=== PATIENT | female | born 1970 | race Caucasian/White ===

== ENCOUNTER → 2019-12-07 14:25 | Outpatient (CLI) | payer OTHER, SELFPAY ==
--- NOTE | ~2019-12-07 | MM_ITS ---
EXAMINATION: MM diag rui implant BI w kaylie HISTORY: Bilateral breast lumps and pain TECHNIQUE: ML, MLO and cc 3-D tomosynthesis images of both breasts were performed and synthetic 2-D i mages were generated. CAD analysis was submitted and interpreted. High resolution complete bilateral breast ultrasound was performed. COMPARISON: 05/11/2019 bilateral implant diagnostic digital mammogram and Limited bilateral breast ultr asound examination 03/29/2018 bilateral Limited breast ultrasound 02/03/2018 bilateral implant digital screening mammogram BREAST PARENCHYMAL COMPOSITION: The breasts are extremely dense, which lowers the sensitivity of mamm ography. FINDINGS: MAMMOGRAPHIC FINDINGS: A partially circumscribed 6 mm mass is suggested posteriorly in the upper medial left breast (MLO Pa osynthesis image 28/53). Additional breast masses cannot be excluded due to the dense stroma. Bilateral complete breast ultras ound examination was therefore performed. ULTRASOUND: Right breast: 9:00 subareolar area: 8 x 3 x 7 mm simple cyst 9:00 5 cm from nipple at area of a palpable abnormality: Parallel circumscribed mixed cystic and betsy d 3 x 1.6 x 1.3 cm lesion adjacent to the implant, without posterior shadowing or internal vascularit y, having benign sonographic appearance Left breast: 2:00 subareolar area and area of palpable findin x 4.6 x 4.8 mm cyst with through transmission an d posterior enhancement; this corresponds to the mammographic 6 mm mass (MLO Tomosynthesis image 28/5 3). IMPRESSION: 1. Benign findings; no mammographic evidence of malignancy 2. Routine mammographic screening is recommended. BI-RADS Category 2: Benign finding(s). Radiology Reviewed, dictated and finalized at location A. ULATION CHEMIST
--- NOTE | ~2019-12-07 | US_ITS ---
US breast BI complete DATE: 12/07/2019 16:28 INDICATION: Bilateral lumpy breast texture TECHNIQUE: High-resolution ultrasound and color flow imaging of both complete breasts FINDINGS: Please refer to combined bilateral diagnostic mammogram and bilateral complete breast ultra sound report IMPRESSION: BI-RADS Category 2: Benign Recommendation: Routine mammographic screening Reviewed, dictated and finalized at Location A. Reviewed, dictated and finalized at location B. OLOGIST
== END ==
PROVIDERS: PCP Family Medicine; Visit Provider Obstetrics & Gynecology
DX: N64.4 Mastodynia (principal); N63.10 Unspecified lump in the right breast, unspecified quadrant; N63.20 Unspecified lump in the left breast, unspecified quadrant
CPT/HCPCS: 76641; 77062; 77066; G0279

== ENCOUNTER → 2021-02-11 16:45 | Outpatient (CLI) | payer OTHER, SELFPAY ==
--- NOTE | ~2021-02-11 | MM_ITS ---
EXAMINATION: MM scrn rui implant BI w kaylie HISTORY: Screening mammogram TECHNIQUE: Craniocaudal and mediolateral oblique 3-D tomosynthesis images with implant displacement a nd synthetic 2-D images were generated. Craniocaudal and mediolateral oblique views of the breasts wi thout implant displacement were obtained using full field digital mammography. CAD analysis was submi tted and interpreted. COMPARISON: 12/07/2019 bilateral diagnostic implant mammogram and bilateral complete breast ultrasound 05/11/2019 bilateral diagnostic implant digital mammogram examination and bilateral Limited breast ultr asound 03/29/2018 bilateral Limited breast ultrasound 02/03/2018, 09/07/2016 bilateral implant digital screening mammogram examinations BREAST PARENCHYMAL COMPOSITION: The breasts are heterogeneously dense, which may obscure small masses . FINDINGS: Status post bilateral augmentation mammoplasty There is no evidence of suspicious mass, rahel cification, or architectural distortion to suggest malignancy in either breast. There has been no vania picious interval change. IMPRESSION: 1. No mammographic evidence of malignancy. 2. Recommend routine screening mammography in one year. BI-RADS Category 1: Negative Reviewed, dictated and finalized at location A.
== END ==
PROVIDERS: Visit Provider Physician Assistant
DX: Z12.31 Encounter for screening mammogram for malignant neoplasm of breast (principal)
CPT/HCPCS: 77063; 77067

== ENCOUNTER → 2022-02-26 13:41 | Outpatient (CLI) | payer OTHER, SELFPAY ==
--- NOTE | ~2022-02-26 | MM_ITS ---
EXAMINATION: MM scrn rui implant BI w kaylie HISTORY: Screening mammogram TECHNIQUE: Craniocaudal and mediolateral oblique 3-D tomosynthesis images with implant displacement a nd synthetic 2-D images were generated. Craniocaudal and mediolateral oblique views of the breasts wi thout implant displacement were obtained using full field digital mammography. CAD analysis was submi tted and interpreted. COMPARISON: February 11, 2021 bilateral implant screening mammogram December 07, 2019 bilateral implant diagnostic mammogram and bilateral complete breast ultrasound BREAST PARENCHYMAL COMPOSITION: The breasts are heterogeneously dense, which may obscure small masses . FINDINGS: Circumscribed new 8.5 mm opacity is noted in the posterior upper mid to inner left breast. Possible new circumscribed opacity in the posterior inner mid to upper right breast. Heterogeneous dense stroma may obscure additional masses. IMPRESSION: 1. Bilateral breast masses are suggested 2. Bilateral diagnostic mammography and bilateral breast ultrasound examination are recommended BI-RADS Category 0: Incomplete: Needs additional imaging evaluation. Reviewed, dictated and finalized at location A.
== END ==
PROVIDERS: PCP Family Medicine; Visit Provider Nurse Practitioner Obstetrics & Gynecology
DX: Z12.31 Encounter for screening mammogram for malignant neoplasm of breast (principal); R92.8 Other abnormal and inconclusive findings on diagnostic imaging of breast
CPT/HCPCS: 77063; 77067

== ENCOUNTER → 2022-03-19 13:55 | Outpatient (CLI) | payer OTHER, SELFPAY ==
--- NOTE | ~2022-03-19 | MMUS_ITS ---
EXAMINATION: MM diag rui implant BI w kaylie, US breast BI complete HISTORY: Follow-up bilateral breast masses TECHNIQUE: Additional 3-D tomosynthesis images of the breasts were performed and synthetic 2-D images were generated. CAD analysis was submitted and interpreted. High resolution bilateral complete breas t ultrasound was performed. COMPARISON: Comparison to multiple prior studies sequentially, with oldest reviewed study dated 11/2015. BREAST PARENCHYMAL COMPOSITION: The breasts are extremely dense, which lowers the sensitivity of mamm ography FINDINGS: MAMMOGRAPHIC FINDINGS: There are multiple masses in both breasts which are largely obscured by fibroglandular tissue there i s a partially obscured mass medial aspect of the right breast on spot cc view. There is a circumscrib ed mass lateral aspect of the left breast on spot CC view. There are multiple masses identified on th e left spot MLO view which are circumscribed. ULTRASOUND: Complete bilateral US of all 4 quadrants of the breasts and retroareolar region was reviewed. Right breast ultrasound: There are multiple simple and complicated cysts of the right breast. At 12:0 0, 1 cm from the nipple, there is a 6 complicated septated cyst measuring 1 cm maximum dimension. At 3:00, 1 cm from the nipple, there is a benign 6 mm intramammary lymph node. At 8:00, 4 cm from the ni pple there is a benign-appearing 1 cm lymph node adjacent to the breast implant. At 10:00, 4 cm from the nipple there is an oval hypoechoic mass with parallel orientation, no posterior features and no i nternal vascularity measuring 6 mm, likely benign. There are multiple subareolar ducts. Left breast: At 12:00, 4 cm from the nipple there is an oval hypoechoic mass measuring 3 mm with low- level internal echoes, no significant posterior features. At 12:00, 1 cm from the nipple, there is an oval hypoechoic mass which appears solid measuring 5 mm, no significant posterior features and no in ternal vascularity. There are multiple simple and complicated cysts of the left breast. At 11:00, 2 c m from the nipple there is an oval hypoechoic mass measuring 4 mm with posterior acoustic enhancement , likely a complicated cyst. IMPRESSION: 1. Probable benign bilateral breast masses. 2. Recommend 6 month follow-up diagnostic bilateral mammogram and bilateral ultrasound BI-RADS category 3, probably benign findings. Reviewed, dictated and finalized at location A. IMPRESSION: 1. Probable benign bilateral breast masses. 2. Recommend 6 month follow-up diagnostic bilateral mammogram and bilateral ult rasound BI-RADS category 3, probably benign findings.
== END ==
PROVIDERS: PCP Family Medicine; Visit Provider Nurse Practitioner Obstetrics & Gynecology
DX: R92.8 Other abnormal and inconclusive findings on diagnostic imaging of breast (principal); N60.01 Solitary cyst of right breast; N63.15 Unspecified lump in the right breast, overlapping quadrants
CPT/HCPCS: 76641; 77062; 77066; G0279

== ENCOUNTER → 2022-12-23 08:34 | Outpatient (CLI) | payer OTHER, SELFPAY ==
--- NOTE | ~2022-12-23 | MR_ITS ---
EXAMINATION: MR brain/brain stem wo/w con DATE: 12/23/2022 09:19 INDICATION: Subacute worsening headache. TECHNIQUE: Magnetic resonance imaging (MRI) of the brain and brainstem was performed without and with 12 mL MultiHance intravenous contrast. COMPARISON: Brain MRI 11/25/2009 FINDINGS: There are scattered areas of nonspecific increased T2-weighted signal intensity in the cere bral white matter. There is no intracranial hemorrhage, acute infarction, or abnormal intracranial ma ss lesion. The ventricles are normal in size. The paranasal sinuses are clear. The orbits are normal. There is a small right mastoid effusion. IMPRESSION: 1. Mild nonspecific cerebral white matter disease, which likely represents chronic small vessel ische sanjiv disease. Reviewed, dictated and finalized at location A. RMATION ASSURANCE ANALYST IMPRESSION: 1. Mild nonspecific cerebral white matter disease, which likely represents chromosomal disorders counselor vignesh small vessel ischemic disease.
== END ==
PROVIDERS: PCP Family Medicine; Visit Provider Family Medicine
DX: D84.9 Immunodeficiency, unspecified (principal); R51.9 Headache, unspecified; R90.82 White matter disease, unspecified
CPT/HCPCS: 70553; A9577

== ENCOUNTER 2023-05-20 00:13 | Day surgery (SDC) | payer OTHER, SELFPAY ==
[2023-05-12 09:53] VITALS: BMI 25.5
--- NOTE | 2023-05-19 11:28 | PM.HPGS ---
History of Present Illness History of Present Illness Consent: Risks, benefits, and alternatives have been discussed and questions answered. Patient agrees to proceed with procedure. Chief complaint: family hx colon ca Narrative: Rianna King is a 52 year old female With history of lupus, fibromyalgia, chronic headaches, osteoarthritis in her knees who was referred for colon cancer screening. There is a family history of colon cancer.There was recently diagnosed with colorectal cancer. She has a cousin who Was found to have colon cancer in her 40s. Review of Systems Review of Systems: All systems reviewed & are unremarkable except as noted in HPI and below PMFSH Past Medical History Medical History Acute non-recurrent maxillary sinusitis Acute pain of left shoulder BMI 25.0-25.9,adult BMI 26.0-26.9,adult BMI 28.0-28.9,adult Cardiac arrhythmia PVCS COVID-19 (~05/21/20) family with COVID. Patient not tested. loss of taste and smell Dizziness Encounter for screening for other viral diseases Fibrocystic breast changes of both breasts (~2021) followed by breast surgeon with diagnostic mammogram and breast ultrasound 11/26/2022 with probable benign cystic changes on the right and probable benign lesion on the left with repeat mammogram and breast ultrasound on the left in 6 months. Left knee pain Left rotator cuff tear Nausea New onset of headache in immunocompromised patient (~09/2022) MRI of the brain and brainstem on 12/23/2022 was normal with mild nonspecific white matter changes associated with chronic small vessel ischemic disease. 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 RPR negative. Hepatitis-C negative. Tear of meniscus of left knee Urinary frequency UTI (urinary tract infection) Surgical History Surgical History H/O breast augmentation H/O cardiac radiofrequency ablation Family History Family History Other Diabetes mellitus Hypertension Social History Social History Smoking status: Never smoker Alcohol intake: current Alcohol use details: maybe twice a year Substance use: current Substance use type: does not use Other substance usage details: on occasion for headaches Lack of Transportation: No Lack of Food: Never True Current Housing: I Have Housing Concerned About Future Housing: No Difficulty Paying Gas/Electric Bills: No Difficulty Paying for Meds: No Currently Unemployed: No Education: Associate Degree Difficulty w/ Childcare or Family Care: No Living arrangements: alone Occupation/Education: occupation 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[employer]) Gender identity (if verbalized by the patient): Female Sexual Orientation (if Verbalized by the Patient): Straight or Heterosexual Spiritual care concerns: No Agree to blood products: Yes Meds Home Medications and Allergies Home Medications Medication Instructions Recorded Confirmed Type hydroxychloroquine 200 mg tablet 200 mg PO DAILY 10/09/20 05/12/23 History magnesium oxide 400 mg PO BID #60 tabs 06/25/22 05/12/23 Rx cholecalciferol (vitamin D3) 1,250 50,000 unit PO .COMPLEX #6 tabs 10/19/22 05/12/23 Rx mcg (50,000 unit) tablet (Dialyvite Vitamin D3 Max) naproxen 500 mg tablet 500 mg PO BID PRN pain #180 tabs 10/19/22 05/12/23 Rx omeprazole 40 mg capsule,delayed 40 mg PO DAILY #90 caps 10/19/22 05/12/23 Rx release ondansetron 4 mg disintegrating 4 mg PO TID PRN nausea and 10/19/22 05/12/23 Rx tablet vomiting #20 tabs valacyclovir 1 gram tablet 1,000 mg PO .COMPLEX #40 tabs 10/19/22 05/12/23 Rx acetaminophen 300 mg-codeine 60 mg 1 tablet PO TID PRN headache #3
[2023-05-20 07:07] VITALS: BP 119/90; PULSE 80; RESP 18; TEMP 36.1; O2SAT 100
[2023-05-20] MEDS: LACTATED RINGERS 1,000 ML 150 ML IV CONT (07:17)
--- NOTE | 2023-05-20 07:31 | WPDANESEPPF ---
Anes - Initial Pre Proc Eval Procedure: Operation Date: 05/20/23 08:00 Proposed Procedures p Colonoscopy - Fady Valdez MD Date/Time: 05/20/23 07:31 Surgeon: Fady Valdez MD Pre Op Diagnosis: family hx colon ca Patient Data Age: 52 Gender: F Height: 1.55 m Weight: 61.8 kg Last Vital Signs Temp 97 F L 05/20/23 07:07 Pulse 80 05/20/23 07:07 Resp 18 05/20/23 07:07 BP 119/90 05/20/23 07:07 Pulse Ox 100 05/20/23 07:07 O2 Del Method Room Air 05/20/23 07:07 Allergies Allergy/AdvReac Type Severity Reaction Status Date / Time cyanocobalamin (vitamin B12) Allergy Severe Anaphylactic Verified 05/20/23 06:57 [From Ferractiv] Shock folic acid [From Ferractiv] Allergy Severe Anaphylactic Verified 05/20/23 06:57 Shock iron [From Ferractiv] Allergy Severe Anaphylactic Verified 05/20/23 06:57 Shock duloxetine [From Cymbalta] Allergy Intermediate tight Verified 05/20/23 06:57 throat ranolazine Allergy Unknown Unknown Verified 05/20/23 06:57 meperidine Allergy Unresponsiv Verified 05/20/23 06:57 e amitriptyline AdvReac Mild tiredness Verified 05/20/23 06:57 Home Medications Medication Instructions Recorded Confirmed Type hydroxychloroquine 200 mg tablet 200 mg PO DAILY 10/09/20 05/12/23 History magnesium oxide 400 mg PO BID #60 tabs 06/25/22 05/12/23 Rx cholecalciferol (vitamin D3) 1,250 50,000 unit PO .COMPLEX #6 tabs 10/19/22 05/12/23 Rx mcg (50,000 unit) tablet (Dialyvite Vitamin D3 Max) naproxen 500 mg tablet 500 mg PO BID PRN pain #180 tabs 10/19/22 05/12/23 Rx omeprazole 40 mg capsule,delayed 40 mg PO DAILY #90 caps 10/19/22 05/12/23 Rx release ondansetron 4 mg disintegrating 4 mg PO TID PRN nausea and 10/19/22 05/12/23 Rx tablet vomiting #20 tabs valacyclovir 1 gram tablet 1,000 mg PO .COMPLEX #40 tabs 10/19/22 05/12/23 Rx acetaminophen 300 mg-codeine 60 mg 1 tablet PO TID PRN headache #30 12/23/22 05/12/23 Rx tablet tabs baclofen 5 mg tablet 5 mg PO TID PRN spasm 01/22/23 05/12/23 History alprazolam 1 mg tablet (Xanax) 1 mg PO TID PRN anxiety #90 tabs 05/09/23 05/12/23 Rx Patient hx anesthesia problems: none Family hx anesthesia problems: none Results Review: All pre-operative results and documents have been reviewed as part of the pre-operative evaluation. [facility] Past Medical History Medical History Acute non-recurrent maxillary sinusitis Acute pain of left shoulder BMI 25.0-25.9,adult BMI 26.0-26.9,adult BMI 28.0-28.9,adult Cardiac arrhythmia PVCS COVID-19 (~05/21/20) family with COVID. Patient not tested. loss of taste and smell Dizziness Encounter for screening for other viral diseases Fibrocystic breast changes of both breasts (~2021) followed by breast surgeon with diagnostic mammogram and breast ultrasound 11/26/2022 with probable benign cystic changes on the right and probable benign lesion on the left with repeat mammogram and breast ultrasound on the left in 6 months. Left knee pain Left rotator cuff tear Nausea New onset of headache in immunocompromised patient (~09/2022) MRI of the brain and brainstem on 12/23/2022 was normal with mild nonspecific white matter changes associated with chronic small vessel ischemic disease. 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 RPR negative. Hepatitis-C negative. Tear of meniscus of left knee Urinary frequency UTI (urinary tract infection) Surgical History Surgical History H/O breast augmentation H/O cardiac radiofrequency ablation Family History Family History Other Diabetes mellitus Hypertension Social History Social History Smoking status: Never smoker Alcohol intake: current
[2023-05-20 08:07] VITALS: BP 115/88; PULSE 94; RESP 20; O2SAT 96
[2023-05-20 08:17] VITALS: BP 95/62; PULSE 88; RESP 22; O2SAT 97
[2023-05-20 08:27] VITALS: BP 98/63; PULSE 92; RESP 18; O2SAT 98
== END 2023-05-20 08:36 | disposition home or self-care (01) ==
PROVIDERS: PCP Family Medicine; Visit Provider Internal Medicine Gastroenterology
PROC: 0DJD8ZZ Inspection of Lower Intestinal Tract, Via Natural or Artificial Opening Endoscopic (ICD-10-PCS; CPT 45378; principal; 2023-05-20 08:00)
DX: Z12.11 Encounter for screening for malignant neoplasm of colon (principal); K57.30 Diverticulosis of large intestine without perforation or abscess without bleeding; Z80.0 Family history of malignant neoplasm of digestive organs; M32.9 Systemic lupus erythematosus, unspecified; M79.7 Fibromyalgia
CPT/HCPCS: 45378; J2704; J7120

== ENCOUNTER 2024-11-08 13:35 | Outpatient (CLI) | payer OTHER, SELFPAY ==
[2024-11-08 13:49] LABS: Basophils Absolute Auto 0.1 K/mm3 (0.0-0.1); Basophils Percent Auto 1.4 % (0.2-1.2); Eosinophils Absolute Auto 0.2 K/mm3 (0-0.3); Eosinophils Percent Auto 3.8 % (0-4.4); Hematocrit 38.1 % (37.0-47.0); Hemoglobin 12.7 g/dL (12.0-15.0); Immature Granulocyte Absolute 0.01 K/mm3 (0.00-0.031); Immature Granulocyte Percent A 0.2 % (0-0.5); Lymphocytes Absolute Auto 1.53 K/mm3 (0.9-3.2); Mean Corpuscular HGB Conc 33.3 g/dl (32-36); Mean Corpuscular Hemoglobin 31.8 pg (26-34); Mean Corpuscular Volume 95.3 fl (80-100); Mean Platelet Volume 10.2 fl (7.4-10.4); Monocytes Absolute Auto 0.5 K/mm3 (0.1-0.6); Monocytes Percent Auto 10.1 % (2.6-8.5); Neutrophils Absolute Auto 2.6 K/mm3 (1.3-6.7); Neutrophils Percent Auto 53.5 % (45.5-73.1); Platelet Count Result 216 k/mm3 (150-375); Red Cell Distribution Width 11.8 % (11.5-14.5); White Blood Count 4.9 K/mm3 (4.5-10.0)
[2024-11-08 16:19] LABS: Iron 123 ug/dL (37-170)
[2024-11-08 16:33] LABS: Percent Iron Saturation 43 % (20-50)
[2024-11-08 16:39] LABS: Alanine Aminotransferase 194 U/L (6-35); Albumin Level 4.5 g/dL (3.5-5.1); Alkaline Phosphatase 178 U/L (38-126); Anion Gap 3 mmol/L (4-12); Aspartate Amino Transferase 116 U/L (14-36); Bilirubin,Total 0.5 mg/dL (0.2-1.3); Blood Urea Nitrogen 19 mg/dL (7-17); Calcium 9.6 mg/dL (8.4-10.2); Carbon Dioxide 26 mmol/L (22-30); Chloride 108 mmol/L (98-107); Estimated Glomerular Filt Rate > 60; Glucose 102 mg/dL (65-110); Potassium 4.3 mmol/L (3.4-5.0); Sodium 137 mmol/L (137-145)
== END 2024-11-08 13:36 | disposition home or self-care (01) ==
LOC: ANHLAB 13:36
PROVIDERS: PCP Family Medicine; Visit Provider Internal Medicine Hematology & Oncology
DX: E83.110 Hereditary hemochromatosis (principal)
CPT/HCPCS: 36415; 80053; 81256; 82728; 83540; 83550; 85025

== ENCOUNTER 2024-11-08 14:10 | Outpatient (CLI) | payer OTHER, SELFPAY ==
--- NOTE | ~2024-11-08 | CT_ITS ---
EXAMINATION: CT abdomen pelvis w con DATE: 11/08/2024 14:47 INDICATION: Bilateral upper abdominal pain TECHNIQUE: Computed tomography (CT) of the abdomen and pelvis was performed with 100 mL Omnipaque-350 intravenous contrast. Automated exposure control and iterative reconstruction technique were employe d. The dose-length product was 270.66 mGy-cm. COMPARISON: 01/12/2013 FINDINGS: Lung bases are clear. Heart size is normal. No pericardial or pleural effusion. Bilateral breast impl ants. Liver, gallbladder, spleen, pancreas, bilateral adrenal glands and kidneys are normal. Bowels a re unremarkable with no obstruction. Bladder, anteverted uterus and bilateral adnexa are unremarkable . No free intraperitoneal gas or fluid. No pathologically enlarged abdominal or pelvic lymphadenopath y. Sacralized L5 segment. IMPRESSION: 1. No acute intra-abdominal/pelvic process. Reviewed, dictated and finalized at location B. IOLOGY COORDINATOR
== END 2024-11-08 14:11 | disposition home or self-care (01) ==
LOC: ANHIMG 14:17
PROVIDERS: PCP Family Medicine; Visit Provider Internal Medicine Hematology & Oncology
DX: R10.11 Right upper quadrant pain (principal); R10.12 Left upper quadrant pain
CPT/HCPCS: 74177; Q9967

== ENCOUNTER 2025-04-30 13:48 | Outpatient (CLI) | payer OTHER, SELFPAY ==
--- NOTE | ~2025-04-30 | CT_ITS ---
CT diagnostic chest wo con Ordering provider: Kenton Oliver MD History: 54 years Female with . cough and shortness of breath SINCE NEAR DROWNING 2 DAYS AGO . Comparison: None. Technique: CT chest with IV contrast. Radiation reduction technique utilized.The dose-length product was 119.41 mGy-cm. Findings: Bilateral breast implants VISUALIZED THORACIC INLET: Normal. MEDIASTINUM: Aorta/coronary arteries: The thoracic aorta is normal. Heart/other: The heart is not enlarged. Lymph nodes: No mediastinal or hilar adenopathy. LUNGS: No pulmonary nodules or masses. No infiltrates or effusions. No pneumothorax. VISUALIZED UPPER ABDOMEN: 9 mm small hyperdense area which may be artifactual seen in the right lobe of the liver. . Otherwise, the visualized upper abdomen is normal. MUSCULOSKELETAL: Soft tissues: The superficial soft tissues are normal. Bones: Normal spine. IMPRESSION: No acute cardiopulmonary pathology. Reviewed, dictated and finalized at location A.
== END 2025-04-30 13:49 | disposition home or self-care (01) ==
PROVIDERS: PCP Family Medicine; Visit Provider Family Medicine
DX: T75.1XXA Unspecified effects of drowning and nonfatal submersion, initial encounter (principal)
CPT/HCPCS: 71250